=== PATIENT | male | born 1995 | race Two or more races ===

== ENCOUNTER 2017-06-17 13:27 | Emergency (ER) | payer OTHER ==
[2017-06-17 13:36] VITALS: O2SAT 95
--- NOTE | 2017-06-17 14:29 | EDPHY ---
H & P Time Seen by Provider: 06/17/17 13:34 HPI/ROS: HPI Finger injury. 21-year-old male by private vehicle. He is right-hand dominant. He was working as a food preparatory senior sous chef. He accidentally cut the radial tip of his left middle finger with a sharp knife. He avulsed the tip. This happened about 45 minutes to an hour prior to arrival. He brings the of avulsed tip of his finger to the emergency department in a plastic container on ice. He reports his last tetanus shot was within the last 5 years. ROS: Constitutional: No fever, no chills. No weakness. Musculoskeletal: As above. Skin: No rashes. As above. Neurological: No focal weakness or altered sensation. Past medical history: He denies any significant past medical history. Social history: Nonsmoker. No alcohol. Here by himself. As above. Physical Exam: General Appearance: Alert, no distress. This patient is responding to questions appropriately and in full sentences. This patient appears well- hydrated and well-nourished. Eyes: Pupils equal and round no pallor or injection. No lid edema, erythema or injection. Left middle finger exam: Significant for an avulsion laceration distal radial tip left middle finger. The skin flap is about 1.5 cm in diameter. It is to the subcutaneous fat. It is bleeding briskly. No pulsatile bleeding. The left middle finger is otherwise neurovascularly intact. There is no joint or bony involvement appreciated grossly. Please see wound care note for further details. Neurological: Motor sensory function is grossly intact. Cranial nerves are normal. Gait is normal. Skin: Warm and dry, no rashes. As above. Extremities are symmetrical. All joints range without pain or impingement. Psychiatric: No agitation. No depression. Database: EKG: Imaging: Procedures: Procedure: Laceration repair. Verbal consent was obtained from the patient. The four cm laceration on the radial tip of the left middle finger was anesthetized in the usual fashion by digital block with 0.5% bupivacaine without epinephrine. The wound was irrigated, draped and explored to its base with a gloved finger. There were no deep structures involved. No tendon injury was identified. No bony involvement. No foreign body on gross exploration The wound was repaired with 14, 6.0 Prolene sutures placed in interrupted fashion. The wound repair was tolerated well and there were no complications. The procedure was performed by myself. Emergency department course: Digital block performed on the patient's left middle finger with 0.5% bupivacaine without epinephrine. Tourniquet was applied. Wound was explored. He has the avulsed tissue flap in a jar which has been on ice. It is pale in color. Surgicel was applied directly to the wound. Hand specialist paged. I discussed replacing the tissue flap. I explained to the patient in layman's terms that it may not take and he may require a revision procedure. In my professional opinion he understood this decision-making process. He consented to have the procedure done and the tissue flap reattached to his left middle finger. Dr. Capellan, orthopedic hand specialist, called back after I had done the procedure. Case discussed with him. He agrees with emergency department management. He does not recommend antibiotics at this time. He will see this patient in his office for re-evaluation and any further management the middle of next week. This plan was discussed with the patient. Return to emergency department precautions reviewed. All of his questions were answered. The patient was discharged in good condition. Differential Diagnosis: The differential diagnosis on this patient includes but is not limited to avulsion to tip of left middle finger. Bony involvement, joint involvement, retained foreign body unlikely. This represents a partial list of diagnoses considered. These considerations are based on history, physical exam, past history, reassessment and diagnostic testing. Smoking Status: Never smoked Constitutional: Initial Vital Signs Temperature (C) 37.3 C 06/17/17 13:33 Heart Rate 86 06/17/17 13:33 Respiratory Rate 20 06/17/17 13:33 Blood Pressure 156/74 H 06/17/17 13:33 O2 Sat (%) 95 06/17/17 13:33 O2 Delivery Mode Room Air Allergies/Adverse Reactions: No Known Allergies Allergy (Unverified 06/17/17 13:33) Home Medications: Medication Instructions Recorded Hydrocodone/APAP 5/325 [Bruceton 1 - 2 tab PO Q4-6PRN PRN #7 tab 06/17/17 5/325 (*)] Departure - Departure Disposition: Home, Routine, Self-Care Clinical Impression: Avulsion of finger tip Condition: Good Instructions: Care For Your Stitches (ED), Laceration (ED), Finger Amputation ( ED) Additional Instructions: Read and follow provided instructions. Follow-up with Dr. Sree Capellan next week, Tuesday or Tuesday, for re- evaluation and further management. Call his office on Tuesday morning for appointment time. Ibuprofen dosin mg every 6 hours with meals for the next 3 days only. Bruceton/Percocet dosin-2 every 4-[address] for [address] Do not drive on this medication. Return to the emergency department for bleeding that does not stop, uncontrolled pain, swelling, drainage of pus or other serious concerns. Keep wound area dry and clean. Avoid getting it wet in the shower. Referrals: Sree Capellan MD [Medical Doctor] - As per Instructions Stand Alone Forms: Work Comp Follow Up, Work Excuse Prescriptions: Hydrocodone/APAP 5/325 [Bruceton 5/325 (*)] 1 - 2 tab PO Q4-6PRN PRN #7 tab PRN Reason: Pain, Moderate
[2017-06-17 15:28] VITALS: BP 145/78; PULSE 81; RESP 18; TEMP 98.6
== END 2017-06-17 15:28 | disposition home or self-care (01) ==
LOC: CED 13:27
PROC: 0HQGXZZ Repair Left Hand Skin, External Approach (ICD-10-PCS; principal; 2017-06-17)
DX: S61.203A Unspecified open wound of left middle finger without damage to nail, initial encounter (principal); W26.0XXA Contact with knife, initial encounter; Y92.69 Other specified industrial and construction area as the place of occurrence of the external cause; Y99.0 Civilian activity done for income or pay; Y93.89 Activity, other specified